=== PATIENT | female | born 1935 | race Caucasian/White ===

== ENCOUNTER → 2018-07-31 | Outpatient (CLI) | payer MEDICARE, BC ==
[~2018-07-31] MED LIST: ASPI81CT; ASPIRIN 32325 MG/TAB PO; ASPIRIN E.C. 8181 MG PO; CLOPIDOGREL; ECOTRIN325 MG PO; IMDUR 30MG30 MG/TAB PO; IMDUR30 MG PO; LIP PO; LIPITOR 80MG80 MG PO; LIPITOR20 MG PO; NITROQUICK0.4 MG SL; PEPCID 20MG TAB20 MG PO; PLAVIX 75MG TAB75 MG PO; PRAVACHOL80 MG PO; SIMVASTATIN80 MG PO; TICLID250 MG PO; VITAMIN D2000 I1 PO
[2018-07-31 07:38] LABS: CREATININE, serum 0.75 (0.52-1.25)
== END ==
LOC: COL.RAD 06:55
PROVIDERS: Internal Medicine Interventional Cardiology
DX: I77.1 Stricture of artery (principal); R06.02 Shortness of breath; Z87.891 Personal history of nicotine dependence; J18.1 Lobar pneumonia, unspecified organism
CPT/HCPCS: Q9967

== ENCOUNTER → 2019-02-14 | Outpatient (CLI) | payer MEDICARE, BC | LOC: COL.CARD 08:00 | DX: I49.3 Ventricular premature depolarization (principal) ==

== ENCOUNTER 2023-07-04 13:05 | Inpatient (IN) | payer MEDICARE, BC ==
[~2023-07-04] VITALS: Ht 157.5 cm; Wt 48.5 kg
[2023-07-04] MEDS ORDERED: Morphine 4 MG/ML VIAL IV ONE ×2 (14:15→15:30)
[2023-07-04] MEDS ORDERED: Ondansetron 4 MG/2 ML VIAL IV ONE (14:15)
[2023-07-04 14:50] LABS: BASO # 0.1 K/mm3 (0.0-0.2); BASO % 0.4 % (0.0-2.0); EOS % 0.1 % (0.0-4.0); GRAN # 10.2 K/mm3 (1.4-6.5); GRAN % 80.7 % (42.2-75.2); HEMATOCRIT 41.1 % (37.0-47.0); HEMOGLOBIN 13.6 g/dl (12.5-16.0); LYMPH # 1.1 K/mm3 (1.2-3.4); LYMPH % 8.9 % (20.0-51.0); MEAN CELL VOLUME 91 fl (80.0-100.0); MEAN CORPUSCULAR HEMOGLOBIN 30 pg (27-31); MEAN CORPUSCULAR HGB CONC 33 g/dl (33.0-37.0); MEAN PLATELET VOLUME 10.4 fl (7.4-10.4); MONO # 1.2 K/mm3 (0.1-0.6); MONO % 9.5 % (1.7-9.3); PLATELET COUNT 397 K/mm3 (130-400); RED BLOOD COUNT 4.54 M/mm3 (4.10-5.30); REDCELL DISTRIBUTION WIDTH-CV 14.5 % (11.5-14.5)
[2023-07-04 14:59] LABS: PH 6.5 (5.0-8.5); URINE APPEARANCE CLEAR (CLEAR/HAZY); URINE BLOOD 1+ (NEGATIVE); URINE COLOR YELLOW (YELLOW); URINE GLUCOSE NEGATIVE (NEGATIVE); URINE KETONE 2+ (NEGATIVE); URINE NITRATE NEGATIVE (NEGATIVE); URINE PROTEIN(semi-quant) 1+ (NEGATIVE)
[2023-07-04 15:04] LABS: ALBUMIN 3.9 g/dL (3.4-4.8); BILIRUBIN,TOTAL 0.7 mg/dL (0.2-1.2); CALCIUM 10.1 mg/dL (8.4-10.2); CREATININE, serum 0.67 mg/dL (0.57-1.11); POTASSIUM 3.6 mEq/L (3.5-4.5); TOTAL PROTEIN 7.2 g/dl (6.2-8.1)
[2023-07-04 15:10] LABS: COLLECTION METHOD CATHETER
[2023-07-04 16:30] VITALS: BP 162/80; PULSE 101; TEMP 98.2
[2023-07-04] MEDS ORDERED: *Potassium Replacement Protocol MC SCH ×2 (16:30→17:00)
[2023-07-04] MEDS ORDERED: cefTRIAXone 1 G in Water For Injection,Sterile 10 ML IV SCH (16:30)
[2023-07-04 17:00] VITALS: BP_SYST 162
[2023-07-04] MEDS ORDERED: Potassium Bicarbonate/Citrate 20 MEQ Effervescent TAB PO SCH (17:00)
[2023-07-04 17:35] LABS: INR 1.1 (0.8-3.0); PROTHROMBIN TIME 11.7 SECONDS (9.7-12.8)
[2023-07-04] MEDS ORDERED: Acetaminophen 325 MG TAB PO PRN (19:45)
[2023-07-04] MEDS ORDERED: Ondansetron 4 MG/2 ML VIAL IV PRN (19:45)
[2023-07-04 20:13] VITALS: BP 109/63; PULSE 100; TEMP 98
[2023-07-04] MEDS ORDERED: Potassium Bicarbonate/Citrate 20 MEQ Effervescent TAB PO ONE (21:30)
[2023-07-04 21:33] VITALS: BP_SYST 106
--- NOTE | 2023-07-04 21:33 | NUR ---
Patient assessed at this time, admitted for right hip fracture, A/O, very pleasant, denies pain or discomfort at this time, reminded to let the nurse know if she's starting to feel pain, with IV infusing well on left arm, SCD's and ELIZABETH's on, instructed to be on NPO postmidnight for her surgery tomorrow, denies further needs, call light and personal items within reach, will continue to monitor.
[2023-07-05] VITALS (19 sets, daily range): BP systolic 92–108; BP diastolic 50–82; PULSE 87–106; TEMP 97.3–98.7
--- NOTE | 2023-07-05 01:40 | NUR ---
Patient complained of pain on her right hip, PS of 4/10, medicated with tylenol with sips of water, will continue to monitor.
[2023-07-05 07:08] LABS: BASO % 0.5 % (0.0-2.0); EOS # 0.1 K/mm3 (0.0-0.7); EOS % 0.8 % (0.0-4.0); GRAN # 5.5 K/mm3 (1.4-6.5); LYMPH # 1.8 K/mm3 (1.2-3.4); LYMPH % 21.7 % (20.0-51.0); MEAN CELL VOLUME 93 fl (80.0-100.0); MEAN CORPUSCULAR HGB CONC 33 g/dl (33.0-37.0); MEAN PLATELET VOLUME 10.8 fl (7.4-10.4); MONO % 11.8 % (1.7-9.3); PLATELET COUNT 300 K/mm3 (130-400); RED BLOOD COUNT 3.76 M/mm3 (4.10-5.30); REDCELL DISTRIBUTION WIDTH-CV 14.8 % (11.5-14.5)
[2023-07-05 07:12] LABS: HEMATOCRIT 34.8 % (37.0-47.0); HEMOGLOBIN 11.4 g/dl (12.5-16.0); MEAN CORPUSCULAR HEMOGLOBIN 30 pg (27-31)
[2023-07-05 07:30] LABS: CALCIUM 9.6 mg/dL (8.4-10.2); CREATININE, serum 0.68 mg/dL (0.57-1.11); MAGNESIUM 1.9 mg/dL (1.6-2.6); POTASSIUM 4.3 mEq/L (3.5-4.5)
[2023-07-05] MEDS ORDERED: NS 1,000 ML IV SCH (08:15)
--- NOTE | 2023-07-05 08:23 | NUR ---
PT RESTING IN BED. PLAN ON SURGERY LATER THIS PM. DR. MEDRANO AND ERIC CALVO PATIENT EDUCATOR IN TO SPEAK WITH PT ABOUT PLANNED PROCEEDURE. PAIN CONTROLLED WITH PO TYLENOL PER PT REQUEST.
--- NOTE | 2023-07-05 09:33 | NUR ---
PT TO SURGERY PER BED WITH
--- NOTE | 2023-07-05 09:33 | NUR ---
personal support worker met with pt to discuss discharge planning. Pt lives alone in [place]. She sees Dr. Thorpe and obtains medications from [facility] with no difficulties. She reports to be independent with ADLs and uses a rolator and has a FWW for DME. She does not have a DPOA-HC and declined to complete one. Pt lists her daughter, Carlota and son-in-law, oJão as her contacts. SW discussed the need for rehab after her hip surgery today. SW provided the Medicare.gov list of SNF and IPR facilities near her. Pt reports she does not want [facility] in [place], but is open to [facility], [facility], and [facility] as she would prefer to stay in [place]. She was provided information on swing bed in [place] or [facility]. Pt states she has no preference, just "wants to get on my feet as soon as I can." SW advised she will send it to the three local SNFs. No further questions. BRYAN emailed referrals to [facility], and [facility]. Discharge Plan: pt/ot pending
[2023-07-05] MEDS ORDERED: Lidocaine PF 2% (20 MG/ML) 5 ML VIAL ONE (09:34)
[2023-07-05] MEDS ORDERED: dexAMETHasone 10 MG/ML VIAL ONE (09:35)
[2023-07-05] MEDS ORDERED: Magnes Hydrox (MOM) 80 MG/ML 30 ML CUP PO PRN (10:30)
[2023-07-05] MEDS ORDERED: oxyCODONE 5 MG TAB PO PRN (10:30)
[2023-07-05] MEDS ORDERED: Naloxone 0.4 MG/ML VIAL IV PRN (10:30)
[2023-07-05] MEDS ORDERED: Phenylephrine 10 MG/ML VIAL ONE (10:37)
[2023-07-05] MEDS ORDERED: Tranexamic Acid 1,000 MG/10 ML VIAL ONE (10:39)
[2023-07-05] MEDS ORDERED: fentaNYL 50 MCG/ML 2 ML VIAL ONE (10:59)
[2023-07-05] MEDS ORDERED: Acetaminophen 500 MG TAB PO SCH (11:18)
[2023-07-05] MEDS ORDERED: hydrALAZINE 20 MG/ML 1 ML VIAL IV PRN (12:15)
[2023-07-05] MEDS ORDERED: HYDROmorphone 1 MG/1 ML SYRINGE [PACU/SDC ONLY] IV PRN (12:15)
[2023-07-05] MEDS ORDERED: fentaNYL 50 MCG/ML 1 ML SYRINGE/VIAL [PACU/SDC ONLY] IV PRN (12:15)
[2023-07-05] MEDS ORDERED: Ondansetron 4 MG/2 ML VIAL IV PRN (12:15)
[2023-07-05] MEDS ORDERED: ceFAZolin 1 G in Water For Injection,Sterile 10 ML IV SCH (14:00)
--- NOTE | 2023-07-05 14:17 | NUR ---
PT TO ROOM 325 PER BED, WITH REPORT FROM JAS ORDAZ [email or web address]. PT IS A/O X4, LUNGS CTA, BOWEL SOUNDS PRESENT. DRESSING TO RIGHT HIP CDI. AQUACEL OVER INCISION. IV TO RW, KABA TO DD.
--- NOTE | 2023-07-05 14:35 | NUR ---
electronic instrument trades worker was informed both [facility] and [facility] could accept pt when she is ready. [facility] is reviewing and requested the med list to be re-sent. BRYAN re-faxed the medication list. Discharge Plan: SNF
[2023-07-05] MEDS ORDERED: Sennosides/Docusate 8.6-50 MG TAB PO SCH (21:00)
[2023-07-06 00:19] VITALS: BP_SYST 98
--- NOTE | 2023-07-06 01:38 | NUR ---
NURSING SHIFT ASSESSMENT COMPLETED. THE PATIENT IS A ALERT AND ORIENTED. THE PATIENT IS RATING HER PAIN 2/10 RIGHT HIP PAIN. ICE IS APPLIED TO THE AREA. ELIZABETH HOSE ON. THE PLAN OF CARE AND EVENING MEDICATIONS WELL AVAILABLE PAIN MEDICATIONS REVIEWED. QUESTIONS AND CONCERNS ADDRESSED. CALL LIGHT AND PERSONAL BELONGINGS WIHTN REACH. BED IN LOW POSITION AND BED ALARM ON.
[2023-07-06 03:43] VITALS: BP 99/63; PULSE 87; TEMP 97.6
[2023-07-06 05:42] VITALS: BP_SYST 99
[2023-07-06 07:42] VITALS: BP 114/73; PULSE 91; TEMP 97.7
--- NOTE | 2023-07-06 08:00 | NUR ---
Pt. sitting up in bed. Pt. is A&OX3, assessment complete. INT to rt. wrist infiltrated, site removed and new site started to lt. hand. 22G pt. tolerated well. Pt. reported pain to the rt. hip at a 2 on pain scale. Discussed with the pt. that therapy would be coming soon and decided to take a pain pill. See mar. Dressing to rt. hip CDI. Pt. denies further needs. Call light within reach.
[2023-07-06 08:26] LABS: ALBUMIN 2.7 g/dL (3.4-4.8); CREATININE, serum 0.71 mg/dL (0.57-1.11); PHOSPHOROUS 3.6 mg/dL (2.3-4.7); POTASSIUM 4.9 mEq/L (3.5-4.5)
[2023-07-06 09:00] VITALS: BP_SYST 114
[2023-07-06] MEDS ORDERED: Calcium Carbonate 500 MG TAB PO SCH (09:00)
[2023-07-06] MEDS ORDERED: Ascorbic Acid 500 MG TAB PO SCH (09:00)
[2023-07-06 09:03] LABS: HEMOGLOBIN 11.3 g/dl (12.5-16.0); MEAN CELL VOLUME 92 fl (80.0-100.0); MEAN CORPUSCULAR HEMOGLOBIN 31 pg (27-31); MEAN CORPUSCULAR HGB CONC 33 g/dl (33.0-37.0); MEAN PLATELET VOLUME 10.3 fl (7.4-10.4); PLATELET COUNT 332 K/mm3 (130-400); RED BLOOD COUNT 3.67 M/mm3 (4.10-5.30); REDCELL DISTRIBUTION WIDTH-CV 14.4 % (11.5-14.5)
[2023-07-06 09:10] LABS: HEMATOCRIT 33.9 % (37.0-47.0)
[2023-07-06 10:14] LABS: BAND 8 % (0-10); LYMPHOCYTE 10 % (20.0-51.0); NEUTROPHILS 76 % (42.0-75.2); PLATELET ESTIMATE NORMAL (NORMAL)
[2023-07-06] MEDS ORDERED: Azithromycin 250 MG TAB PO SCH (10:35)
--- NOTE | 2023-07-06 10:46 | NUR ---
mental health social worker left a voicemail to [facility] [place]. BRYAN informed both [facility] and [facility] that pt was wanting IPR. BRYAN spoke with IPR team who will review and can accept pt today. BRYAN discussed with the daughter and pt who were interested in IPR to rehab quickly and get home. Discharge Plan: IPR today
[2023-07-06] MEDS ORDERED: Docusate Sodium 100 MG CAP PO SCH (10:51)
[2023-07-06] MEDS ORDERED: ASPI325T6 PO (10:56)
[2023-07-06] MEDS ORDERED: STOOL SOFTENER100 M2 PO (10:57)
[2023-07-06] MEDS ORDERED: DULCOLAX S10 MG/SUPP RC (10:57)
[2023-07-06] MEDS ORDERED: OSCAL 500 TAB500 MG PO (10:57)
[2023-07-06] MEDS ORDERED: ROXICODONE 55 MG/TAB PO (10:57)
[2023-07-06] MEDS ORDERED: DUO-KAPS1 CAP PO (10:58)
[2023-07-06] MEDS ORDERED: ZITHROMAX500 M2 PO (10:58)
[2023-07-06] MEDS ORDERED: SENOKOT S 50 MG1 TAB PO (10:58)
[2023-07-06] MEDS ORDERED: VITAMIN C500 MG PO (10:58)
[2023-07-06] MEDS ORDERED: OMNICEF 300MG300 MG PO (10:59)
--- NOTE | 2023-07-06 11:15 | NUR ---
D: Initial visit: Professional Driver stopped by room on rounds. A: Pt was resting and content with daughter and son in law in the room. Pt asked for prayer, pocketbook maker prayed with pt and family. All appreciated the visit. P: Professional Driver informed pt that if she needed anything from the pocketbook maker area to let her nurse know. Professional Driver will follow up as needed.
[2023-07-06 11:31] VITALS: BP 125/65; PULSE 94; TEMP 97.6
[2023-07-06] MEDS ORDERED: Multivitamin TAB PO SCH (12:00)
--- NOTE | 2023-07-06 12:45 | NUR ---
Pt. transferred to [facility]. This nurse will continue care.
== END 2023-07-06 12:45 | DRG 521 ==
LOC: COL.ER 13:05 → SURG 15:18
PROVIDERS: Nurse Practitioner; Orthopaedic Surgery; Physician Assistant; ADMIT Internal Medicine
PROC: 0SRR0J9 Replacement of Right Hip Joint, Femoral Surface with Synthetic Substitute, Cemented, Open Approach (ICD-10-PCS; principal; 2023-07-05 11:30)
DX: M84.451A Pathological fracture, right femur, initial encounter for fracture (principal); J18.9 Pneumonia, unspecified organism; D62 Acute posthemorrhagic anemia; E87.1 Hypo-osmolality and hyponatremia; I25.10 Atherosclerotic heart disease of native coronary artery without angina pectoris; M85.89 Other specified disorders of bone density and structure, multiple sites; G89.29 Other chronic pain; K59.00 Constipation, unspecified; E87.5 Hyperkalemia; M25.551 Pain in right hip; E78.5 Hyperlipidemia, unspecified; Z90.49 Acquired absence of other specified parts of digestive tract; Z95.5 Presence of coronary angioplasty implant and graft; Z79.82 Long term (current) use of aspirin
CPT/HCPCS: A4314; A6197; C1776; J0690; J0696; J1100; J1170; J2270; J2371; J2405; J2704; J2795; J3010; J7030

== ENCOUNTER 2023-07-06 11:03 | Inpatient (IN) | payer MEDICARE, BC ==
[~2023-07-06] VITALS: Ht 157.5 cm; Wt 51.2 kg
[~2023-07-06 11:03] MED LIST changes: +ASPI325T6 PO; +DULCOLAX S10 MG/SUPP RC; +DUO-KAPS1 CAP PO; +OMNICEF 300MG300 MG PO; +OSCAL 500 TAB500 MG PO; +ROXICODONE 55 MG/TAB PO; +SENOKOT S 50 MG1 TAB PO; +STOOL SOFTENER100 M2 PO; +VITAMIN C500 MG PO; +ZITHROMAX500 M2 PO
[2023-07-06 13:07] VITALS: BP_SYST 125
[2023-07-06] MEDS ORDERED: Naloxone 0.4 MG/ML VIAL IV PRN (15:15)
[2023-07-06] MEDS ORDERED: oxyCODONE 5 MG TAB PO PRN (15:15)
[2023-07-06] MEDS ORDERED: Polyethylene Glycol 3350 17 GM PDS PO PRN (15:15)
[2023-07-06] MEDS ORDERED: Acetaminophen 325 MG TAB PO PRN (15:15)
[2023-07-06] MEDS ORDERED: Docusate Sodium 100 MG CAP PO PRN (15:15)
[2023-07-06] MEDS ORDERED: Sennosides/Docusate 8.6-50 MG TAB PO PRN (15:15)
[2023-07-06 17:27] VITALS: BP 161/73; PULSE 101; TEMP 98.4
[2023-07-06] MEDS ORDERED: Docusate Sodium 100 MG CAP PO SCH (21:00)
[2023-07-06] MEDS ORDERED: Sennosides/Docusate 8.6-50 MG TAB PO SCH (21:00)
[2023-07-06] MEDS ORDERED: Cefdinir 300 MG CAP PO SCH (21:00)
[2023-07-07 05:24] VITALS: BP 122/67; PULSE 98; TEMP 98.3
[2023-07-07 06:30] VITALS: BP_SYST 122
[2023-07-07 06:48] LABS: BASO % 0.2 % (0.0-2.0); EOS # 0.1 K/mm3 (0.0-0.7); EOS % 0.5 % (0.0-4.0); GRAN # 6.5 K/mm3 (1.4-6.5); GRAN % 70.4 % (42.2-75.2); HEMOGLOBIN 10.1 g/dl (12.5-16.0); LYMPH # 1.6 K/mm3 (1.2-3.4); LYMPH % 17.2 % (20.0-51.0); MEAN CELL VOLUME 91 fl (80.0-100.0); MEAN CORPUSCULAR HEMOGLOBIN 30 pg (27-31); MEAN CORPUSCULAR HGB CONC 33 g/dl (33.0-37.0); MEAN PLATELET VOLUME 10.6 fl (7.4-10.4); MONO # 1.1 K/mm3 (0.1-0.6); MONO % 11.3 % (1.7-9.3); PLATELET COUNT 275 K/mm3 (130-400); RED BLOOD COUNT 3.33 M/mm3 (4.10-5.30); REDCELL DISTRIBUTION WIDTH-CV 14.6 % (11.5-14.5)
[2023-07-07 07:06] LABS: CALCIUM 8.8 mg/dL (8.4-10.2); CREATININE, serum 0.63 mg/dL (0.57-1.11)
[2023-07-07 07:09] LABS: HEMATOCRIT 30.2 % (37.0-47.0)
[2023-07-07] MEDS ORDERED: Calcium Carbonate 500 MG TAB PO SCH (09:00)
[2023-07-07] MEDS ORDERED: Azithromycin 250 MG TAB PO SCH (09:00)
[2023-07-07] MEDS ORDERED: Ascorbic Acid 500 MG TAB PO SCH (09:00)
[2023-07-07] MEDS ORDERED: Multivitamin TAB PO SCH (12:00)
[2023-07-07] MEDS ORDERED: Ferrous Sulfate 325 MG TAB PO SCH (13:29)
[2023-07-07 16:50] VITALS: BP 101/63; PULSE 102; TEMP 98.3
[2023-07-07 19:00] VITALS: BP_SYST 101
[2023-07-08 05:43] VITALS: BP 110/65; PULSE 89; TEMP 97.7
[2023-07-08 06:53] VITALS: BP_SYST 110
[2023-07-08 17:22] VITALS: BP 108/68; PULSE 88; TEMP 98
[2023-07-08 19:47] VITALS: BP_SYST 108
[2023-07-09 05:27] LABS: HEMATOCRIT 29.4 % (37.0-47.0); HEMOGLOBIN 9.4 g/dl (12.5-16.0)
[2023-07-09 05:42] VITALS: BP 117/70; PULSE 75; TEMP 97.7
[2023-07-09 06:48] VITALS: BP_SYST 117
[2023-07-09 17:16] VITALS: BP 109/67; PULSE 104; TEMP 97.8
[2023-07-09 19:00] VITALS: BP_SYST 109
[2023-07-10 05:27] VITALS: BP 150/75; PULSE 83; TEMP 97.9
[2023-07-10 06:52] VITALS: BP_SYST 150
[2023-07-10 16:26] VITALS: BP 151/72; BP 165/70; PULSE 98; TEMP 97.9
[2023-07-10 19:01] VITALS: BP_SYST 151
[2023-07-11 05:32] VITALS: BP 127/74; PULSE 80; TEMP 97.8
[2023-07-12 17:05] VITALS: BP 123/68; PULSE 87; TEMP 97.6
[2023-07-12 19:00] VITALS: BP_SYST 123
[2023-07-13 05:34] VITALS: BP 101/62; PULSE 80; TEMP 97.9
[2023-07-13 10:11] VITALS: BP_SYST 101
[2023-07-13 17:43] VITALS: BP 118/70; PULSE 84; TEMP 97.8
[2023-07-13 19:11] VITALS: BP_SYST 118
[2023-07-14 05:48] VITALS: BP 123/72; PULSE 86; TEMP 98
[2023-07-14 06:49] VITALS: BP_SYST 123
[2023-07-14 17:26] VITALS: BP 110/70; PULSE 88; TEMP 97.9
[2023-07-14 19:24] VITALS: BP_SYST 110
[2023-07-15 06:00] VITALS: BP 119/66; PULSE 75; TEMP 98.3
[2023-07-15 08:08] VITALS: BP_SYST 119
[2023-07-15 14:52] LABS: HEMATOCRIT 30.9 % (37.0-47.0)
[2023-07-15 17:06] VITALS: BP 121/69; PULSE 98; TEMP 97.4
[2023-07-15 18:30] VITALS: BP_SYST 121
[2023-07-16 05:28] VITALS: BP 117/71; PULSE 75; TEMP 97.4
[2023-07-16 07:03] VITALS: BP_SYST 117
[2023-07-16 18:42] VITALS: BP 125/72; PULSE 95; TEMP 98.2
[2023-07-16 19:00] VITALS: BP_SYST 125
[2023-07-17 05:51] VITALS: BP 116/69; PULSE 77; TEMP 97.2
[2023-07-17 06:51] VITALS: BP_SYST 116
[2023-07-17] MEDS ORDERED: SENOKOT S 50 MG1 TAB PO (09:06)
[2023-07-17] MEDS ORDERED: OSCAL 500 TAB500 MG PO (09:06)
[2023-07-17] MEDS ORDERED: FERROUS SU325 MG/TAB PO (09:06)
[2023-07-17] MEDS ORDERED: VITAMIN C500 MG PO (09:06)
[2023-07-17] MEDS ORDERED: ASPI325T6 PO (09:06)
[2023-07-17] MEDS ORDERED: DUO-KAPS1 CAP PO (09:06)
== END 2023-07-17 12:26 | disposition home or self-care (01) | DRG 560 ==
PROVIDERS: Internal Medicine; Physician Assistant; ADMIT Internal Medicine
DX: S72.001D Fracture of unspecified part of neck of right femur, subsequent encounter for closed fracture with routine healing (principal); E87.1 Hypo-osmolality and hyponatremia; Z74.09 Other reduced mobility; R26.89 Other abnormalities of gait and mobility; R91.8 Other nonspecific abnormal finding of lung field; D64.89 Other specified anemias; E87.5 Hyperkalemia; I25.10 Atherosclerotic heart disease of native coronary artery without angina pectoris; K59.00 Constipation, unspecified
CPT/HCPCS: A9284

== ENCOUNTER → 2023-10-11 | Outpatient (CLI) | payer MEDICARE, BC ==
[~2023-10-11] MED LIST changes: +FERROUS SU325 MG/TAB PO
[2023-10-13 05:38] LABS: ANGIOTENSIN CONVERTING ENZYME 71 U/L (14-82)
== END ==
LOC: COL.LAB 13:35
PROVIDERS: Pediatrics Pediatric Pulmonology
DX: R93.89 Abnormal findings on diagnostic imaging of other specified body structures (principal)

== ENCOUNTER → 2023-11-28 | Outpatient (CLI) | payer MEDICARE, BC ==
[~2023-11-28] MED LIST changes: +Gadoterate 15 ML VIAL IV ONE; +METAMUCIL0.52 G1 PO; +MULTI VITAMINS1 TAB PO; +VITAMINC250CH
== END ==
LOC: COL.RAD 09:39
DX: C34.91 Malignant neoplasm of unspecified part of right bronchus or lung (principal); R22.0 Localized swelling, mass and lump, head
CPT/HCPCS: A9575